=== PATIENT | male | born 1975 | race Caucasian/White ===

== ENCOUNTER 2018-10-27 08:49 | Outpatient (CLI) | payer OTHER ==
--- NOTE | 2018-10-27 10:31 | CT ---
CT ABDOMEN AND PELVIS WITH IV CONTRAST: HISTORY: Pancreatitis. The patient had a total gastrectomy and cholecystectomy 3 weeks ago. Now has mid abdo russell pain and fever. FINDINGS: There are mild dependent changes in the lung bases. There are postop changes of gastrectomy and chol ecystectomy. 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 The liver, spleen, p ancreas, adrenal glands, and right kidney are normal. There is a 30 mm exophytic low-density mass ar ising from the posterior cortex of the left kidney which does not meet all CT criteria for a simple c yst. No ascites or pneumoperitoneum is seen. There are small pockets of air in the subcutaneous fat of th e anterior abdominal wall likely from subcutaneous injections. No lymphadenopathy is noted. The sma ll bowel loops are not abnormally dilated. There is no evidence of aneurysmal dilatation of the abdo russell aorta. No osteolytic or osteoblastic lesions are seen. There is good contrast opacification o f the portosplenic vasculature without evidence of thrombosis. IMPRESSION: 1. Postop changes in the abdomen. 2. Probable left renal cyst. Evaluation with bilateral renal ultrasound is recommended. POS: [facility]
[2018-10-27] MEDS ORDERED: ISOVUE-370 76%-LOCM 1 ML ONE (17:12)
== END 2018-10-27 08:50 | disposition home or self-care (01) ==
LOC: BICCT 08:49
PROVIDERS: ATTEND Family Medicine
DX: K85.00 Idiopathic acute pancreatitis without necrosis or infection (principal); Z98.890 Other specified postprocedural states
CPT/HCPCS: 74177; Q9966